=== PATIENT | male | born 1970 | race Caucasian/White ===

== ENCOUNTER → 2017-07-31 | Outpatient (CLI) | payer SELFPAY ==
[~2017-07-31] MED LIST: HYDROCODONE BIT1 T11 PO; ZANTAC 300300 MG PO
[2017-08-01 07:07] LABS: HEPATITIS B SURFACE AG Negative (Negative); HEPATITIS C VIRUS ANTIBODY <0.1 s/co (0.0-0.9)
[2017-08-01 09:08] LABS: HIV 1+2 AB + HIV1 P24 AG Non Reactive (Non Reactive)
== END | disposition home or self-care (01) ==
LOC: LAB 16:19
PROVIDERS: Family Medicine
DX: Z02.2 Encounter for examination for admission to residential institution (principal)